=== PATIENT | female | born 1990 | race Asian ===

== ENCOUNTER 2020-08-24 12:30 | Emergency (ER) | payer OTHER ==
[~2020-08-24] VITALS: Ht 154.9 cm; Wt 46.7 kg
[2020-08-24 12:39] VITALS: BP 118/80; Ht 154.9 cm; Wt 46.7 kg
== END 2020-08-24 14:48 | disposition home or self-care (01) ==
LOC: ED 12:30
DX: S01.111A Laceration without foreign body of right eyelid and periocular area, initial encounter (principal); W22.8XXA Striking against or struck by other objects, initial encounter; Y93.K1 Activity, walking an animal; Y92.89 Other specified places as the place of occurrence of the external cause; Y99.8 Other external cause status
CPT/HCPCS: J2001

== ENCOUNTER 2020-09-01 11:23 | Emergency (ER) | payer BC ==
[~2020-09-01] VITALS: Ht 157.5 cm; Wt 47.6 kg
[2020-09-01 11:27] VITALS: BP 112/82; Ht 157.5 cm; Wt 47.6 kg
== END 2020-09-01 11:35 | disposition home or self-care (01) ==
LOC: ED 11:23
DX: S01.111D Laceration without foreign body of right eyelid and periocular area, subsequent encounter (principal); X58.XXXD Exposure to other specified factors, subsequent encounter